=== PATIENT | female | born 1995 | race Caucasian/White ===

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

== ENCOUNTER 2019-03-07 07:54 | Emergency (ER) | payer BC ==
[2019-03-07 08:08] VITALS: BMI 40.0
--- NOTE | 2019-03-07 08:27 | PDOC ---
History of Present Illness - General Chief Complaint: Laceration Stated Complaint: LT.HAND LAC Time Seen by Provider: 03/07/19 08:15 History Source: Patient Exam Limitations: No Limitations - History of Present Illness Initial Comments: 03/07/19 10:34 23 yo F with no medical history presents s/p fall with laceration sustained to the left wrist and 2nd left digit. Per the patient, she slipped on her cat's hairball, which caused her to place her hand on top of a glass box that shattered. No loss of sensation or motor function in the left hand. Unknown to the patient when her last tetanus shot was. LMP 1.5 weeks ago. Allergies: NKDA Social: Denies tobacco, alcohol, and substance abuse Shx: gastric bypass. Meds: None Past History - Past Medical History Allergies/Adverse Reactions: Allergies Allergy/AdvReac Type Severity Reaction Status Date / Time No Known Allergies Allergy Verified 03/07/19 08:08 Home Medications: Ambulatory Orders NK [No Known Home Medication] 03/07/19 COPD: No - Surgical History GI Surgery: Yes (GASTRIC SLEEVE) - Immunization History Immunization Up to Date: No - Suicide/Smoking/Psychosocial Hx Smoking History: Never smoked Have you smoked in the past 12 months: No Number of Cigarettes Smoked Daily: 0 Hx Alcohol Use: No Drug/Substance Use Hx: No Substance Use Type: None *Physical Exam - Vital Signs Last Vital Signs Temp Pulse Resp BP Pulse Ox 98 F 79 18 109/54 L 9 L 03/07/19 08:05 03/07/19 08:05 03/07/19 08:05 03/07/19 08:05 03/07/19 08:05 *DC/Admit/Observation/Transfer Diagnosis at time of Disposition: Laceration - Discharge Dispostion Disposition: HOME Decision to Admit order: No - Referrals Referrals: Trenton Mayo MD [Staff Physician] - Jsoeluis Michaels MD [Staff Physician] - Jose Penaloza MD [Staff Physician] - - Patient Instructions Printed Discharge Instructions: DI for Laceration Repair Additional Instructions: You were seen for your laceration. You were given sutures. Please return to our emergency department in 10-14 days to have your sutures removed. You can have them removed by your primary medical doctor as well. Please follow up with the referred hand surgeons within 1 week after discharge for follow up care and management. Your xrays did not show glass remaining in the hand xrays. Please do not clean the area for the first 24 hours and then do not keep your hand submerged underwater while the sutures are in place. Please watch for signs of infection. This includes worsening reddening in the area of the cut, lines going up to your elbow, purulent discharge from the wound site, and fevers. Thank you. - Post Discharge Activity Forms/Work/School Notes: Back to Work
[2019-03-07] MEDS ORDERED: DIPHTH,PERTUSS(ACELL),TET 0.5 ML DISP.SYRIN IM ONE ×2 (08:59→09:26)
--- NOTE | 2019-03-07 09:34 | PDOC ---
Attending Attestation - Resident Resident Name: Marcello Hopkins - ED Attending Attestation I have performed the following: I have examined & evaluated the patient, The case was reviewed & discussed with the resident, I agree w/resident's findings & plan - HPI HPI: 03/07/19 09:31 23-year-old female with no medical history presenting with left hand and wrist laceration after tripping over slippery Hairball. She landed on a glass memory box and cut her left wrist and some puncture wounds to her left index finger and palm. Bleeding is controlled. Last tetanus shot is unclear. Patient does not have any symptoms of weakness, paresthesias, bleeding tendencies. - Physicial Exam PE: 03/07/19 09:32 General: NAD, well appearing Vascular: 2+ radialis pulses symmetric and equal. Neuro: distal tubing machine operator strength 5/5. sensation grossly intact in median/radial/ ulnar distribution. MSK: soft compartments, Cap refill <2 sec. 2+ radialis pulses bilaterally and symmetric. FDP/FDS intact. no joint tenderness. FROM. 5/5 tubing machine operator strength, hand abduction/adduction, wrist flexion and extension. Skin: color normal color, warm and well perfused. Laceration 3.5cm linear and subcutaneous to volar aspect of left wrist nonbleeding, tender to palp. small puncture to volar aspect of left index finger. skin avulsion on volar aspect of left wrist adjacent to laceration 03/07/19 10:49 - Medical Decision Making 03/07/19 09:33 hpi as documented VS reviewed, will repeat SpO2, as pt is in no respiratory distress. repeat VS wnl. analgesia with bedside median nerve block to left hand given extent of injury Xray neg for FB. no fx. no s/s/ infection repair of laceration to left wrist and left index finger - see resident procedure note wound cleaning and debridement analgesia. tdap. discharge stable condition, wound care instructions, supportive care, otc analgesia. hand/plastics referral as needed, suture removal x 10-14 days. topical bacitracin and bandaid 03/07/19 10:49
[2019-03-07 10:48] VITALS: BP 116/68; PULSE 67; TEMP 99.2
== END 2019-03-07 10:52 | disposition home or self-care (01) ==
LOC: JER 07:54
PROC: 3E0234Z Introduction of Serum, Toxoid and Vaccine into Muscle, Percutaneous Approach (ICD-10-PCS; principal; 2019-03-07)
PROC: 0HQGXZZ Repair Left Hand Skin, External Approach (ICD-10-PCS; 2019-03-07)
DX: S61.512A Laceration without foreign body of left wrist, initial encounter (principal); W01.110A Fall on same level from slipping, tripping and stumbling with subsequent striking against sharp glass, initial encounter; Y93.89 Activity, other specified; Y92.009 Unspecified place in unspecified non-institutional (private) residence as the place of occurrence of the external cause
CPT/HCPCS: 73110-TC-LT-FY; 73130-TC-LT-FY; 90715; 99282-25

== ENCOUNTER 2019-03-21 10:10 | Emergency (ER) | payer BC | END 2019-03-21 11:05 | disposition home or self-care (01) | LOC: JERFT 10:10 ==